=== PATIENT | male | born 1950 | race African-American/Black ===

== ENCOUNTER → 2017-11-03 | Outpatient (CLI) | payer BC, MEDICARE ==
[2017-11-03 15:04] LABS: CHLORIDE 102 mEq/L (98-107); HEMOGLOBIN. 11.8 g/dL (14.0-18.0); MEAN CORPUSCULAR HEMOGLOBIN 33.1 pg (28.0-32.0); MEAN CORPUSCULAR VOLUME 98.5 fL (80.0-94.0); MEAN PLATELET VOLUME 7.5 fl (7.4-10.4); PLATELET 95 x1000/uL (130-400); RED BLOOD CELL COUNT 3.55 mill/uL (4.7-6.1); RED CELL DISTRIBUTION WIDTH 15.2 % (11.6-14.6)
[2017-11-03 17:21] LABS: PLATELET ESTIMATE DECREASED
== END | disposition home or self-care (01) ==
LOC: LAB 14:33
DX: C50.929 Malignant neoplasm of unspecified site of unspecified male breast (principal)
CPT/HCPCS: 36415